=== PATIENT | female | born 1985 | race Caucasian/White ===

== ENCOUNTER 2024-05-05 11:03 | Emergency (ER) | payer BC, OTHER, SELFPAY ==
[2024-05-05 11:09] VITALS: BP 136/83
--- NOTE | 2024-05-05 12:05 | ED.GENMED ---
History of Present Illness
General
Chief Complaint: Flank Pain
Source: patient
Exam Limitations: none
Time Seen by Provider: 05/05/24 11:46
Nursing documentation reviewed up to this point in time: agreed with
History of Present Illness
History of Present Illness:
Patient is a 38-year-old female presenting to the emergency department w/ right flank pain. Patient states that about 2 weeks ago she had a dull ache in her right flank which self resolved after a few days. However�on Sunday pain returned in her
right flank and progressed to sharp pains radiating from her right back into her right lower abdomen. She describes it as a constant pain that is worse with movement with some waves of increasing intensity. Patient reports associated nausea
although denies any vomiting. Patient denies any fever, chills, dysuria, hematuria, changes in bowel habits. Patient denies any chest pain or shortness of breath. No anorexia. Her last menstrual period finished yesterday.
Patient was seen at an urgent care this morning and sent to the emergency department for CT scan.
Patient does have a history of known intrarenal kidney stones although no history of obstructing stone.
Past History
Past History
ED Past Medical History: Other (migraine, endometriosis)
ED Past Surgical History: and Gynecological
Social History
Tobacco: Vaping (vap user)
Alcohol: None
Drug: Marijuana
Personal: Single
Living: with family
Employment: Not employed
Family History
Family History: Other (Headaches)
Review of Systems
Review of Systems
Allergies reviewed?: Yes
All Other Systems: ROS reviewed and negative except as documented in HPI and ROS
Phy Exam
Physical Exam
Physical Exam:
Vitals: Patient's vital signs are stable. Afebrile
General: Patient is uncomfortable appearing due to pain. Nontoxic-appearing.
Skin: Warm and dry, no rashes or lesions
Head: Normocephalic, atraumatic
Eyes: Sclera nonicteric. EOMs intact. No nystagmus.
Throat: Protecting airway
Neck: Normal ROM, no cervical spine tenderness, no meningismus
Cardiac: Regular rate and rhythm, no murmurs.
Pulm: Normal respiratory effort, no wheezes, rales, rhonchi heard on exam.
Abdomen: Abdomen soft. Mild tenderness in right lower abdomen and right mid abdomen without rebound tenderness or guarding.
Back: No CVA tenderness. No erythema, ecchymoses, or rash of back.
Extremities: No evidence of cyanosis or edema. Palpable distal pulses
Neuro: AAOx3. Grossly intact.
Psychiatric: Normal affect.
Scores
PERC Rule Criteria
Age <50 years: Yes
HR <100 bpm: Yes
Room air oxygen sat >94%: No
History of DVT or PE: No
Recent trauma or surgery: No
Hemoptysis: No
Exogenous estrogen: No
Clinical signs suggestive of DVT: No
: No
Considered low risk for PE: Yes
PERC Score: 1
PE can be excluded by PERC: No
Course
Orders/Labs/Results
Orders:
Orders
05/05/24 11:38
Test Result ONCE
05/05/24 11:49
Urinalysis Reflex To Culture Urgent
Date Specimen was Collected: 05/05/24
Time Specimen was Collected: 11:38
Urine Microscopic Reflex Cult Urgent
05/05/24 12:03
Abdomen/Pelvis wo Contrast CT [CT Abd/pelvis Wo Iv Cont] Urgent
Comment:
Reason For Exam: Right flank pain radiating to RLQ, +nausea
0.9% Sodium Chloride 1000 ml [Nss] 1,000 ml IV BOLUS
Ketorolac [Toradol] 15 mg IV NOW STA
Ondansetron Injectable [Zofran] 4 mg IV NOW STA
Test Result ONCE
05/05/24 12:34
Complete Blood Count/With Diff Urgent
Comprehensive Metabolic Panel Urgent
HCG, Serum Qualitative Screen Urgent
Lipase Urgent
Comment: ADD ON
05/05/24 13:17
HYDROmorphone [Dilaudid] 0.5 mg IV NOW STA
05/05/24 16:18
US Abdomen Complete/Upper Urgent
Comment:
Reason For Exam: RUQ pain, nausea
05/05/24 16:19
Add On- LAB Urgent
Tests Added?: lipase
Abnormal Lab Results
05/05/24 05/05/24
11:49 12:34
RBC 3.96 L 10^6/uL
(4.20-5.40)
Hct 34.7 L %
(37.0-47.0)
MPV 10.8 H fL
(7.4-10.4)
Absolute Neuts (auto) 6.6 H 10^3/uL
(1.4-6.5)
Neutrophils % 76.7 H %
(42.2-75.2)
Lymphocytes % 15.9 L %
(20.5-51.1)
Creatinine 0.5 L mg/dL
(0.6-1.0)
Ur Occult Blood Reflex Trace A
(Negative)
Urine RBC 3-6 A /HPF
(0-2)
Urine Bacteria (Reflex) Few A
(Negative)
05/05/24 12:34
05/05/24 12:34
Vital Signs
Initial and Last Documented VS:
Initial Vital Signs
Temp Pulse Resp BP Pulse Ox
97.7 F 76 16 136/83 99
05/05/24 11:09 05/05/24 11:09 05/05/24 11:09 05/05/24 11:09 05/05/24 11:09
Last Documented Vital Signs
Temp Pulse Resp BP Pulse Ox
97.7 F 80 18 136/80 99
05/05/24 11:09 05/05/24 19:54 05/05/24 19:54 05/05/24 19:54 05/05/24 19:54
MDM/Problems Addressed
Differential Diagnosis Includes:
Not limited to: Kidney stone, pyelonephritis, cystitis, appendicitis, biliary colic, etc
MDM/Problems Addressed:
38 year old female with right flank pain. Some associated nausea. No fevers, chills, anorexia. Known history of intrarenal stones but no past renal colic. Vitals stable. Patient is afebrile. Physical exam as above. Cardio/pulmonary assessment
unremarkable. Abdomen is soft with right mid and lower abdominal tenderness. No CVA tenderness. No rash to suggest zoster. History most consistent with possible nephrolithiasis vs pyelonephritis. Will check basic labs, urinalysis, non contrast CT.
Will treat pain and reassess.
Update: Labs reviewed. No clinically significant abnormalities. Urine shows few RBCs although no evidence of infection. There is bacteria seen although also squamous cells noted suggesting likely contamination. CT pending.
Update: CT shows no evidence of obstructing uropathy or other acute abnormalities. Few RBCs likely secondary to patients menstrual cycle which she finished yesterday. Patient still with mild-moderate tenderness on exam - now most notable in RUQ.
Gallbladder noted to be WNL on noncontrast - although given persistent discomfort will check abdominal US to r/u an underlying gallbladder etiology.
Update: US report reviewed. No acute abnormalities. A lipase was also added on which is within normal range. Patient still with some discomfort although overall improved from arrival in ED. Unknown exact etiology of symptoms although low suspicion
for acute abdominal infection given patient afebrile with no leukocytosis and unremarkable abdominal imaging. Patient PERC negative without any shortness of breath or pulmonary complaints. Do not suspect PE. MSK etiology is a consideration given
symptoms much exacerbated with movement. Workup in emergency department unremarkable. Feel patient stable for discharge with very strict return precautions. Patient will follow-up with primary care this week for further eval. Case discussed with
attending physician.
Chronic conditions affecting care:
N/A
Acute Exacerbation and/or Progression of Chronic Illness:
N/A
*Radiology
Radiology exam reviewed: preliminary read by ED provider and radiology read reviewed
*Pulse Oximetry
Patient hypoxic: no
*EKG
Interpreted by ED Provider?: NA
*Web Marketing Assistant Interpretation
Rate: Web Marketing Assistant- N/A
*Critical Care Note
Total Time (30-74mins, 75-104mins- exclusive of procedures): Not Applicable
ED Attending Note
-
Portions of this chart may have been created with voice recognition software.� Occasional wrong word or��sound alike� substitutions may have occurred due to the inherent limitations of voice recognition software.
Discharge Plan
Departure
Patient Disposition: Home (Routine Discharge)
Date of Disposition: 05/05/24
Time of Disposition: 18:30
Patient with high blood pressure during this ER visit?: No
Condition: Good
Covid-19: Not Applicable
Discharge Problem:
Acute right flank pain
Instructions: Flank Pain (DC), Abdominal Pain, Adult ED
Prescriptions:
New
ondansetron 4 mg tablet,disintegrating
4 mg PO TIDPRN PRN (Reason: nausea/vomiting) Qty: 7 0RF
No Action
Multivitamin
1 tab PO DAILY
Vitamin C:
1 tab PO DAILY
hydroxyzine pamoate [Vistaril] 25 MG capsule
25 mg PO BID PRN (Reason: anxiety) Qty: 20 0RF
Referrals:
Junior Golden DO [Family Provider] - Follow up in 2-3 days
Stand Alone Forms: Return to Work
Activity Restrictions/Additional Instructions:
RETURN TO THE EMERGENCY DEPARTMENT WITH ANY FEVERS, PERSISTENT/SEVERE ABDOMINAL PAIN, NAUSEA/VOMITING, SHORTNESS OF BREATH/ DIFFICULTY BREATHING, CHEST PAIN, INABILITY TO URINATE, WORSENING IN CURRENT SYMPTOMS, OR ANY OTHER CONCERNS
-As discussed�the ultrasound and CT scan of your abdomen showed no acute abnormalities today.
-You can continue to take Motrin and/or Tylenol at home for discomfort. You can try MiraLAX [id number] for constipation. You can try [id number] lidocaine patches to affected area on back. It is important to stay well-hydrated.
-As discussed that she should follow-up with your primary care in a few days to ensure that symptoms are improving/for further evaluation.
Monitor your symptoms closely and return to the emergency department any acute worsening/new symptoms or any other concern
Interventions
Interventions:
*Risk Screen - Suicide Last Done: 05/05/24 11:50
*General Assessment Last Done: 05/05/24 11:50
*Neglect/Abuse Screening Last Done: 05/05/24 11:50
*ED COVID-19 Vaccine History Last Done: 05/05/24 11:50
*Nursing Disposition Last Done: 05/05/24 19:54
VO-Xlmmwa-Rlyyjheuxw Assessment Last Done: 05/05/24 11:50
ED-Female Genitourinary Assessment Last Done: 05/05/24 11:50
Discharge Date and Time
Discharge Date/Time: 05/05/24 20:00
Print Language: MOLDOVAN
[2024-05-05 12:09] LABS: Urine Albumin Negative (Neg - Trace); Urine Bilirubin Negative (Negative); Urine Character Clear (Clear); Urine Color Yellow; Urine Glucose Negative (Negative); Urine Ketone Negative (Negative); Urine Leukocyte Negative (Negative); Urine Nitrite Negative (Negative); Urine Occult Blood Trace (Negative); Urine Specific Gravity 1.005 (<1.030); Urine Urobilinogen Negative (Neg - 1+)
[2024-05-05] MEDS: TORADOL 15 MG IV (12:35)
[2024-05-05] MEDS: NSS 1000 IV (12:35)
[2024-05-05] MEDS: ZOFRAN 4 MG IV (12:36)
[2024-05-05 12:48] LABS: % Basophils 0.3 % (0-2); % Eosinophils 1.2 % (0-6); % Immature Granulocytes 0.2 % (0-0.5); % Lymphocytes 15.9 % (20.5-51.1); % Monocytes 5.7 % (1.7-9.3); % Neutrophils 76.7 % (42.2-75.2); Absolute Eosinophils 0.1 10^3/uL (0-0.7); Absolute Lymphocytes 1.4 10^3/uL (1.2-3.4); Absolute Monocytes 0.5 10^3/uL (0.1-0.6); Absolute Neutrophils 6.6 10^3/uL (1.4-6.5); Hematocrit 34.7 % (37.0-47.0); Hemoglobin 12.2 g/dL (12.0-16.0); Mean Corp Hgb Conc. 35.2 g/dL (33.0-37.0); Mean Corpuscular Hgb 30.8 pg (27.0-31.0); Mean Corpuscular Volume 87.6 fL (81.0-99.0); Mean Platelet Volume 10.8 fL (7.4-10.4); Nucleated Red Blood Cells % 0 %; Platelet Count 258 10^3/uL (130-400); Red Blood Cell Count 3.96 10^6/uL (4.20-5.40); Red Cell Dist. Width 12.2 % (11.5-14.5); White Blood Cell Count 8.6 10^3/uL (4.8-10.8)
[2024-05-05 12:49] LABS: Urine Bacteria Few (Negative); Urine White Cell 0-2 /HPF (0-5)
[2024-05-05 12:57] LABS: HCG, Serum Qualitative Screen Negative
[2024-05-05 13:00] LABS: ALT (SGPT) 14 U/L (0-35); AST (SGOT) 22 U/L (14-36); Albumin 4.6 g/dl (3.5-5.0); Alkaline Phosphatase 63 U/L (38-126); Blood Urea Nitrogen 8 mg/dl (7-17); Calcium 9.1 mg/dl (8.4-10.2); Carbon Dioxide 25 mmol/L (22-30); Chloride 103 mmol/L (98-107); Glucose 93 mg/dl (70-99); Sodium 140 mmol/L (135-145); Total Bilirubin 0.4 mg/dl (0.2-1.3); Total Protein 7.3 g/dl (6.3-8.2); eGFR > 60.00
[2024-05-05] MEDS: DILAUDID 0.5 MG IV (13:23)
[2024-05-05 17:15] LABS: Lipase 63 U/L (23-300)
[2024-05-05 19:54] VITALS: BP 136/80
== END 2024-05-05 20:00 | disposition home or self-care (01) ==
LOC: EMR 11:03
PROVIDERS: Physician Assistant; EMERGENCY PHYSICIAN Student in an Organized Health Care Education/Training Program; FAMILY PHYSICIAN Family Medicine
DX: R10.9 Unspecified abdominal pain (principal); N80.9 Endometriosis, unspecified; F17.290 Nicotine dependence, other tobacco product, uncomplicated; Z87.442 Personal history of urinary calculi
CPT/HCPCS: 99284; 96374; 96375; 96361; 74176; 76700; 80053; 81003; 81015; 83690; 84703; 85025